=== PATIENT | male | born 1985 | race Caucasian/White ===

== ENCOUNTER 2018-05-13 10:36 | Outpatient (CLI) | payer BC ==
--- NOTE | 2018-05-14 03:34 | Diagnostic Imaging Report ---
BENITO AYALA [facility] [address] [facility].[address] [address] Report Submission Date: May 13, 2018 11:06:08 AM CASH ACCOUNTING CLERK Patient Study Name: MARCIAL PELLETIER Date: May 13, 2018 10:50:36 AM CASH ACCOUNTING CLERK Modality Type: DX Gender: M Description: CHEST 2VIEW : 87 Institution: [facility] Physician: BENITO AYALA PA AND LATERAL CHEST HISTORY: Positive PPD COMPARISON: None PA and Lateral Chest dated May 13, 2018 demonstrates a normal cardiomediastinal silhouette. Pulmonary vascularity is normal. Lungs are clear. IMPRESSION: NO ACTIVE DISEASE. Electronically signed on May 13, 2018 11:06:08 AM CASH ACCOUNTING CLERK by: Heaven MANZANO
== END 2018-05-13 10:38 ==
LOC: RAD 10:36
PROVIDERS: ATTEND Family Medicine
DX: R76.11 Nonspecific reaction to tuberculin skin test without active tuberculosis (principal); B18.2 Chronic viral hepatitis C
CPT/HCPCS: 36415; 71046; 87522